=== PATIENT | female | born 1995 | race African-American/Black ===

== ENCOUNTER 2019-08-22 05:18 | Emergency (ER) | payer MEDICAID, SELFPAY ==
--- NOTE | ~2019-08-22 | XR_ITS ---
EXAMINATION: XR foot LT 2V DATE: 08/22/2019 05:52 INDICATION: Left foot pain. TECHNIQUE: 2 views of left foot were obtained. COMPARISON: None. FINDINGS: Bone alignment is normal. No acute fracture. There is mild osteoarthritis of talonavicular joint. IMPRESSION: 1. No acute fracture. Reviewed, dictated and finalized at location A. IMPRESSION: 1. No acute fracture.
[2019-08-22 05:20] VITALS: BP 147/108; PULSE 92; RESP 18; TEMP 36.5; O2SAT 100
[2019-08-22] MEDS: ACETAMINOPHEN 500 MG TABLET 1000 MG PO (05:44)
--- NOTE | 2019-08-22 05:44 | ED.LOWEXIN ---
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 Started yesterday without known injury, and hurts on the instep. Now she says she can barely bear weight. Even though she thinks she might be , she took ibuprofen for the pain, but it did not help. She has never had pain like this before. She had a baby in March, and her period is late from her last one in June. She has an appointment with the [facility] next week. Related Data Home Medications Medication Instructions Recorded Confirmed PNV cmb#95-ferrous fumarate-FA 1 tablet PO DAILY 04/18/19 04/18/19 [] Allergies Allergy/AdvReac Type Severity Reaction Status Date / Time Sulfa (Sulfonamide Allergy Mild Swelling Verified 08/22/19 05:19 Antibiotics) of Lip/Tongue/Throat Review of Systems Review of Systems: Narrative: CONSTITUTIONAL: Denies fever, chills, or sweats. EYES: Denies visual changes, redness, or discharge. ENT: Denies rhinorrhea, congestion, sore throat, or otalgia. CARDIOVASCULAR: Denies chest pain, palpitations, or edema. RESPIRATORY: Denies cough or dyspnea. GASTROINTESTINAL: Denies abdominal pain, nausea, vomiting, or diarrhea. GENITOURINARY: Denies dysuria or hematuria. SKIN: Denies rash or itching. MUSCULOSKELETAL: Denies back pain, or myalgia. NEUROLOGIC: Denies headache, numbness, or weakness. PSYCHIATRIC: Denies anxiety or depression. [facility] Past Medical History Medical History (Updated 08/22/19 @ 05:49 by Mirta Castelan MD) No pertinent past medical history Normal Surgical History Surgical History No pertinent past surgical history Family History Family History (Updated 04/18/19 @ 12:33 by Isabella Bob RN) Other Unknown family medical history Social History Social History (Updated 08/22/19 @ 05:47 by Mirta Castelan MD) Smoking status: Never smoker Alcohol intake: never Substance use: never Gender identity (if verbalized by the patient): Female Spiritual care concerns: No Exam Narrative: Exam Narrative: GENERAL: Well-appearing, well-nourished, and in no acute distress. HEAD: Normocephalic, atraumatic. EYES: PERRLA and EOMI. ENT: Nares clear, no rhinorrhea or epistaxis. Mucous membranes moist. NECK: Supple. CHEST: Clear to auscultation. No respiratory distress. HEART: Regular rate and rhythm. No murmur heard. Normal peripheral pulses. ABDOMEN: Soft, nontender, nondistended, normal active bowel sounds. EXTREMITIES: Left foot has swelling and tenderness medially. No redness. SKIN: Warm, dry, no rash. NEURO: No focal deficits. Alert and oriented x3. PSYCH: Normal mood and affect. Course Reevaluation(s) Reevaluation #1: Went in to tell the patient that no fracture showed up on her x-ray. The injury is either a stress fracture which does not show up until healing shows, or sprain. She can have a postop shoe for comfort. I reminded her to take only Tylenol for pain since she might be . Date: 08/22/19 Time: 06:09 Vital Signs Vital signs: Vital Signs Temperature 97.7 F 08/22/19 05:20 Pulse Rate 92 08/22/19 05:20 Respiratory Rate 18 08/22/19 05:20 Blood Pressure 147/108 H 08/22/19 05:20 Pulse Oximetry 100 08/22/19 05:20 Temperature 97.7 F 08/22/19 05:20 Pulse Rate 92 08/22/19 05:20 Respiratory Rate 18 08/22/19 05:20 Blood Pressure 147/108 H 08/22/19 05:20 Pulse Oximetry 100 08/22/19 05:20 MDM - Extremity Injury (Lower) Medical Records Attestation: I reviewed the patient's medical records. Imaging Data Attestation: I personally reviewed and interpreted this imaging study as follows: My impression: STS Discharge Plan Discharge Clinical Impression: Acute foot pain Qualifiers:
== END 2019-08-22 06:18 | disposition home or self-care (01) ==
PROVIDERS: Emergency Provider Emergency Medicine; PCP Family Medicine
DX: M79.672 Pain in left foot (principal)
CPT/HCPCS: 73620; 99283; A9270

== ENCOUNTER 2020-03-11 14:50 | Outpatient (CLI) | payer OTHER, SELFPAY ==
[2020-03-11 15:10] VITALS: BP 133/76; PULSE 99
[2020-03-11 15:43] VITALS: BP 128/78; PULSE 90
[2020-03-11 15:54] LABS: Basophils Percent Auto 0.1 % (0.2-1.2); Eosinophils Percent Auto 0.4 % (0-4.4); Hematocrit 30.2 % (37.0-47.0); Hemoglobin 9.5 g/dL (12.0-15.0); Immature Granulocyte Absolute 0.03 K/mm3 (0.00-0.031); Immature Granulocyte Percent A 0.4 % (0-0.5); Lymphocytes Absolute Auto 2.22 K/mm3 (0.9-3.2); Lymphocytes Percent Auto 26.8 % (18.3-44.2); Mean Corpuscular HGB Conc 31.5 g/dl (32-36); Mean Corpuscular Hemoglobin 25.8 pg (26-34); Mean Corpuscular Volume 82.1 fl (80-100); Mean Platelet Volume 11.1 fl (7.4-10.4); Monocytes Absolute Auto 0.4 K/mm3 (0.1-0.6); Monocytes Percent Auto 4.5 % (2.6-8.5); Neutrophils Absolute Auto 5.6 K/mm3 (1.3-6.7); Neutrophils Percent Auto 67.8 % (45.5-73.1); Platelet Count Result 217 k/mm3 (150-375); Red Blood Count 3.68 M/mm3 (4.2-5.4); Red Cell Distribution Width 14.1 % (11.5-14.5); White Blood Count 8.3 K/mm3 (4.5-10.0)
[2020-03-11 16:07] LABS: Alanine Aminotransferase 12 U/L (4-35); Albumin Level 3.4 g/dL (3.5-5.1); Alkaline Phosphatase 107 U/L (38-126); Anion Gap 4 mmol/L (8-16); Aspartate Amino Transferase 18 U/L (14-36); Bilirubin,Total 0.3 mg/dL (0.2-1.3); Blood Urea Nitrogen 6 mg/dL (7-17); Calcium 8.6 mg/dL (8.4-10.2); Carbon Dioxide 25 mmol/L (22-30); Chloride 106 mmol/L (98-107); Estimated Glomerular Filt Rate > 60; Glucose 95 mg/dL (65-105); Potassium 3.9 mmol/L (3.4-5.0); Sodium 135 mmol/L (137-145)
[2020-03-11 17:28] VITALS: TEMP 36.5
--- NOTE | 2020-03-12 07:49 | PM.OBTRLD ---
OB - Triage/Final Diagnosis Visit Information Date of evaluation: 03/11/20 Reason for evaluation: other (gest htn) Evaluation Laboratory results: Laboratory Tests 03/11/20 03/11/20 15:48 15:48 WBC 8.3 RBC 3.68 L Hgb 9.5 L Hct 30.2 L MCV 82.1 MCH 25.8 L MCHC 31.5 L RDW 14.1 Plt Count 217 MPV 11.1 H Immature Gran % (Auto) 0.4 Neut % (Auto) 67.8 Lymph % (Auto) 26.8 [place] % (Auto) 4.5 Eos % (Auto) 0.4 Baso % (Auto) 0.1 L Lymph # (Auto) 2.22 [place] # (Auto) 0.4 Eos # (Auto) 0.0 Baso # (Auto) 0.0 Abs Immat Gran (auto) 0.03 Absolute Neuts (auto) 5.6 Absolute Nucleated RBC 0.0 Nucleated RBC % 0.0 Sodium 135 L Potassium 3.9 Chloride 106 Carbon Dioxide 25 Anion Gap 4 L BUN 6 L Creatinine 0.60 L Estim Creat Clear Calc Not Reportable Estimated GFR > 60 Glucose 95 Uric Acid 4.0 Calcium 8.6 Total Bilirubin 0.3 AST 18 ALT 12 Alkaline Phosphatase 107 Total Protein 7.0 Albumin 3.4 L Vital signs: Vital Signs - 24 hr 03/11/20 15:10 03/11/20 15:43 03/11/20 17:28 Temperature 97.7 F Pulse Rate 99 90 Blood Pressure 133/76 128/78
== END 2020-03-11 17:27 | disposition home or self-care (01) ==
LOC: ANHOBOP 14:55 → ANHOBPP 14:58
PROVIDERS: PCP Family Medicine; Visit Provider Student in an Organized Health Care Education/Training Program
DX: O13.9 Gestational [pregnancy-induced] hypertension without significant proteinuria, unspecified trimester (principal); Z3A.00 Weeks of gestation of pregnancy not specified
CPT/HCPCS: 36415; 59025; 80053; 84550; 85025; 99199

== ENCOUNTER 2020-03-31 06:18 | Inpatient (IN) | payer OTHER, SELFPAY ==
[2020-03-31] VITALS (41 sets, daily range): BP systolic 100–149; BP diastolic 61–125; PULSE 74–111; RESP 16–18; TEMP 36.4–36.9; BMI 45.1
--- NOTE | 2020-03-31 06:48 | LDADM ---
This patient, Bri Brooks, was admitted to Labor/Delivery/Recovery 103 on 03/31/20 at 06:18. Plans for labor, pain management and were discussed with patient. Patient/family oriented to hospital policies and general routines including ID bracelet, bed and alarms, visiting hours, pain management, procedures, bathroom and other care routines, personal items, smoking policy, room service/diet and guest tray routines, infant security routines, and visiting hours. Patient/Family are encouraged to report perceived risks to care and to ask questions if they do not understand what they are told or what they should do. See OBIX for further documentation.
[2020-03-31] MEDS: OXYTOCIN 30 UNITS/NS 500 ML 30 UNITS/500 ML BAG 125 UNITS IV CONT ×2 (07:01→14:53)
[2020-03-31] MEDS: LACTATED RINGERS 1,000 ML 125 ML IV CONT (07:01)
[2020-03-31 07:06] LABS: Basophils Percent Auto 0.3 % (0.2-1.2); Eosinophils Absolute Auto 0.1 K/mm3 (0-0.3); Eosinophils Percent Auto 0.7 % (0-4.4); Hematocrit 30.3 % (37.0-47.0); Hemoglobin 9.6 g/dL (12.0-15.0); Immature Granulocyte Absolute 0.02 K/mm3 (0.00-0.031); Immature Granulocyte Percent A 0.3 % (0-0.5); Lymphocytes Absolute Auto 2.13 K/mm3 (0.9-3.2); Lymphocytes Percent Auto 29.9 % (18.3-44.2); Mean Corpuscular HGB Conc 31.7 g/dl (32-36); Mean Corpuscular Hemoglobin 24.6 pg (26-34); Mean Corpuscular Volume 77.7 fl (80-100); Mean Platelet Volume 11.1 fl (7.4-10.4); Monocytes Absolute Auto 0.5 K/mm3 (0.1-0.6); Monocytes Percent Auto 6.3 % (2.6-8.5); Neutrophils Absolute Auto 4.5 K/mm3 (1.3-6.7); Neutrophils Percent Auto 62.5 % (45.5-73.1); Platelet Count Result 235 k/mm3 (150-375); Red Cell Distribution Width 13.8 % (11.5-14.5); White Blood Count 7.1 K/mm3 (4.5-10.0)
--- NOTE | 2020-03-31 07:50 | PM.IMHP ---
H&P: HPI History of Present Illness Date/Time: 03/31/20 07:50 Chief Complaint: iol Narrative: Bri Brooks is a 24 year old female whose last menstrual period was 07/06/2019, EDC is 04/07/2020, presents at 39 weeks gestation for induction of labor. Negative for group B strep. Her cervix is favorable. Review of Systems Review of Systems: All systems reviewed & are unremarkable except as noted in HPI and below PMFSH Past Medical History Medical History No pertinent past medical history Normal Surgical History Surgical History No pertinent past surgical history Family History Family History Other Unknown family medical history Social History Social History Smoking status: Never smoker Second hand tobacco smoke exposure: No Alcohol intake: never Substance use: never Gender identity (if verbalized by the patient): Female Spiritual care concerns: No Meds Home Medications and Allergies Home Medications Medication Instructions Recorded Confirmed Type PNV cmb#95-ferrous fumarate-FA 1 tablet PO DAILY 04/18/19 03/11/20 History [] ferrous sulfate [Iron (ferrous 325 mg PO DAILY 03/11/20 03/11/20 History sulfate)] Allergies Allergy/AdvReac Type Severity Reaction Status Date / Time Sulfa (Sulfonamide Allergy Mild Swelling Verified 08/22/19 05:19 Antibiotics) of Lip/Tongue/Throat Vital Signs Vital Signs - 24 hr 03/31/20 06:54 03/31/20 07:01 03/31/20 07:06 Temperature 97.7 F Pulse Rate 97 98 Blood Pressure 149/66 H 133/64 03/31/20 07:16 03/31/20 07:31 03/31/20 07:46 Temperature Pulse Rate 97 85 102 H Blood Pressure 128/68 126/61 134/69 Exam Const: General: no acute distress Eyes: General: appearance normal, both eyes and all related structures Neck: Neck: supple and no JVD Thyroid: thyroid normal Resp: Effort & Inspection: normal respiratory effort Auscultation: clear to auscultation bilaterally Cardio: Rate: regular rate Rhythm: regular rhythm GI: Inspection: non-distended GI Palp: Yes Soft to palpation, No Tenderness to palpation present (GI) and No Guarding due to palpation present (GI) Auscultation: normal bowel sounds : General: Yes other (Cervix 3/50/2. AROM clear. FHTs reassuring) Skin: General skin exam: no rashes or lesions noted Extrem: General: normal to inspection and no edema Psych: Mental Status: mental status grossly normal Affect: normal affect H&P: Results Labs Labs: Short CBC 03/31/20 Range/Units 06:49 WBC 7.1 (4.5-10.0) K/mm3 Hgb 9.6 L (12.0-15.0) g/dL Hct 30.3 L (37.0-47.0) % Plt Count 235 (150-375) k/mm3 Assessment and Plan Additional Plan Impression: Term with favorable cervix Plan: Medical induction of labor. Spontaneous vaginal delivery expected. She is contemplating epidural
--- NOTE | 2020-03-31 12:27 | PM.OBPNVD ---
OB - PN: Subj Subjective Date/time seen: 03/31/20 12:27 Interval history: cx 4.5 by rn exam fhts ok OB - PN: Obj Data Labs CBC & Chem 7: 03/31/20 06:49 Labs: Laboratory Results - last 24 hr 03/31/20 03/31/20 06:49 06:49 WBC 7.1 RBC 3.90 L Hgb 9.6 L Hct 30.3 L MCV 77.7 L MCH 24.6 L MCHC 31.7 L RDW 13.8 Plt Count 235 MPV 11.1 H Immature Gran % (Auto) 0.3 Neut % (Auto) 62.5 Lymph % (Auto) 29.9 [place] % (Auto) 6.3 Eos % (Auto) 0.7 Baso % (Auto) 0.3 Lymph # (Auto) 2.13 [place] # (Auto) 0.5 Eos # (Auto) 0.1 Baso # (Auto) 0.0 Abs Immat Gran (auto) 0.02 Absolute Neuts (auto) 4.5 Absolute Nucleated RBC 0.0 Nucleated RBC % 0.0 Blood Type B Positive Antibody Screen Negative OB - PN A/P Time Spent With Patient Time: Total time spent is greater than 50% in coordination of care (as documented) at patient's floor/unit and/or counseling patient:
--- NOTE | 2020-03-31 14:17 | WPDANESEPP ---
Anes - Eval Pre Procedure Procedure: labor epidural Date/Time: 03/31/20 14:17 Surgeon: olya Preop Diagnosis: pain during labor Pre Op Diagnosis: Induction of Labor Patient Data Age: 24 Gender: F Height: 5 ft 5 in Weight: 123 kg Last Vital Signs Temp 36.6 C 03/31/20 13:00 Pulse 83 03/31/20 13:16 BP 125/106 H 03/31/20 13:16 Allergies Allergy/AdvReac Type Severity Reaction Status Date / Time Sulfa (Sulfonamide Allergy Mild Swelling Verified 08/22/19 05:19 Antibiotics) of Lip/Tongue/Throat Home Medications Medication Instructions Recorded Confirmed Type PNV cmb#95-ferrous fumarate-FA 1 tablet PO DAILY 04/18/19 03/11/20 History [] ferrous sulfate [Iron (ferrous 325 mg PO DAILY 03/11/20 03/11/20 History sulfate)] Laboratory Tests 03/31/20 03/31/20 03/31/20 06:49 06:49 06:49 WBC 7.1 K/mm3 K/mm3 (4.5-10.0) RBC 3.90 M/mm3 L M/mm3 (4.2-5.4) Hgb 9.6 g/dL L g/dL (12.0-15.0) Hct 30.3 % L % (37.0-47.0) MCV 77.7 fl L fl (80-100) MCH 24.6 pg L pg (26-34) MCHC 31.7 g/dl L g/dl (32-36) RDW 13.8 % % (11.5-14.5) Plt Count 235 k/mm3 k/mm3 (150-375) MPV 11.1 fl H fl (7.4-10.4) Immature Gran % (Auto) 0.3 % % (0-0.5) Neut % (Auto) 62.5 % % (45.5-73.1) Lymph % (Auto) 29.9 % % (18.3-44.2) [place] % (Auto) 6.3 % % (2.6-8.5) Eos % (Auto) 0.7 % % (0-4.4) Baso % (Auto) 0.3 % % (0.2-1.2) Lymph # (Auto) 2.13 K/mm3 K/mm3 (0.9-3.2) [place] # (Auto) 0.5 K/mm3 K/mm3 (0.1-0.6) Eos # (Auto) 0.1 K/mm3 K/mm3 (0-0.3) Baso # (Auto) 0.0 K/mm3 K/mm3 (0.0-0.1) Abs Immat Gran (auto) 0.02 K/mm3 K/mm3 (0.00-0.031) Absolute Neuts (auto) 4.5 K/mm3 K/mm3 (1.3-6.7) Absolute Nucleated RBC 0.0 K/mm3 K/mm3 (0.0-0.012) Nucleated RBC % 0.0 % % (0.0-0.2) RPR Pending Blood Type B Positive Antibody Screen Negative Patient hx anesthesia problems: none Family hx anesthesia problems: none PMFSH Past Medical History Medical History (Updated 03/31/20 @ 14:18 by Arnaldo Espinoza CRNA) No pertinent past medical history Normal Surgical History Surgical History No pertinent past surgical history Family History Family History Other Unknown family medical history Social History Social History Smoking status: Never smoker Second hand tobacco smoke exposure: No Alcohol intake: never Substance use: never Gender identity (if verbalized by the patient): Female Spiritual care concerns: No Exam Day of Procedure 03/31/20 14:17 Patient weight: morbidly obese Heart: regular rate and rhythm Lungs: clear to auscultation and normal air movement Neurological: alert and oriented
--- NOTE | 2020-03-31 14:27 | PM.OBPRVD ---
OB - Delivery Note Procedure Delivery date: 03/31/20 Intrapartal events: None Induction method: AROM Delivery augmentation: pitocin Delivery monitor: external FHT Route of delivery: Episiotomy description: None Laceration Description: None Specimen: No Quantitative Blood Loss (ml): 58 Disposition: floor [place] Baby Date of : 03/31/20 Time of : 14:19 Weeks of gestation at delivery: 39 gender: Male presentation: vertex position: Right Occiput Anterior Placenta delivery description: Spontaneous cord vessel description: 3 Vessels and Clamped/Cut score one minute: 9 score five minutes: 9
[2020-03-31] MEDS: IBUPROFEN 600 MG TABLET PO (16:29)
--- NOTE | 2020-03-31 17:33 | OBPPTRN ---
Patient transferred to post room # 287 via wheelchair. Support person present. Oriented to unit, room, information board, rooming in, admission packet and security measures. Patient verbalizes understanding.
[2020-04-01] MEDS: IBUPROFEN 600 MG TABLET PO (04:15)
[2020-04-01 05:53] LABS: Hematocrit 27.6 % (37.0-47.0); Hemoglobin 8.7 g/dL (12.0-15.0)
--- NOTE | 2020-04-01 06:33 | PM.OBPNVD ---
OB - PN: Subj Subjective Date/time seen: 04/01/20 06:33 Interval history: cx 4.5 by rn exam fhts ok Patient comments: no complaints and pain well controlled [place] baby status: doing well and nursing well OB - PN: Obj Data Labs CBC & Chem 7: 04/01/20 04:17 Labs: Laboratory Results - last 24 hr 03/31/20 03/31/20 04/01/20 06:49 06:49 04:17 WBC 7.1 RBC 3.90 L Hgb 9.6 L 8.7 L Hct 30.3 L 27.6 L MCV 77.7 L MCH 24.6 L MCHC 31.7 L RDW 13.8 Plt Count 235 MPV 11.1 H Immature Gran % (Auto) 0.3 Neut % (Auto) 62.5 Lymph % (Auto) 29.9 [place] % (Auto) 6.3 Eos % (Auto) 0.7 Baso % (Auto) 0.3 Lymph # (Auto) 2.13 [place] # (Auto) 0.5 Eos # (Auto) 0.1 Baso # (Auto) 0.0 Abs Immat Gran (auto) 0.02 Absolute Neuts (auto) 4.5 Absolute Nucleated RBC 0.0 Nucleated RBC % 0.0 Blood Type B Positive Antibody Screen Negative OB - PN A/P Plan day: 1 Plan: routine care, discharge home and follow up 6 weeks Time Spent With Patient Time: Total time spent is greater than 50% in coordination of care (as documented) at patient's floor/unit and/or counseling patient: Time with patient: less than 15 minutes Review of Systems Review of Systems: All systems reviewed & are unremarkable except as noted in HPI and below Exam Const: General: no acute distress Eyes: General: appearance normal, both eyes and all related structures Neck: Neck: supple and no JVD Thyroid: thyroid normal Resp: Effort & Inspection: normal respiratory effort Auscultation: clear to auscultation bilaterally Cardio: Rate: regular rate Rhythm: regular rhythm GI: Inspection: non-distended GI Palp: Yes Soft to palpation, No Tenderness to palpation present (GI) and No Guarding due to palpation present (GI) Auscultation: normal bowel sounds : General: Yes bladder normal to palpation External Female Exam: normal external appearance Speculum Exam - Vagina: normal vaginal discharge and No vaginal bleeding Speculum Exam - Cervix: nontender Bimanual exam- vagina & uterus: bladder normal to palpation and No Cervical tenderness present OB/external & speculum: No vaginal bleeding Skin: General skin exam: no rashes or lesions noted Extrem: General: normal to inspection and no edema Psych: Mental Status: mental status grossly normal Affect: normal affect
--- NOTE | 2020-04-01 06:33 | PM.DS ---
DS: Admitting Diagnosis Admitting Diagnosis Admitting Diagnosis: term iup DS: Summary Hospital Course Hospital Course: Patient was admitted at term for induction of labor. She underwent unremarkable spontaneous vaginal delivery. Hospital course was unremarkable was discharged in stable condition Time Spent with Patient Time attestation: Total time spent providing and/or coordinating discharge services: Exam Const: General: no acute distress Eyes: General: appearance normal, both eyes and all related structures Neck: Neck: supple and no JVD Thyroid: thyroid normal Resp: Effort & Inspection: normal respiratory effort Auscultation: clear to auscultation bilaterally Cardio: Rate: regular rate Rhythm: regular rhythm GI: Inspection: non-distended GI Palp: Yes Soft to palpation, No Tenderness to palpation present (GI) and No Guarding due to palpation present (GI) Auscultation: normal bowel sounds : General: Yes bladder normal to palpation External Female Exam: normal external appearance Speculum Exam - Vagina: normal vaginal discharge and No vaginal bleeding Speculum Exam - Cervix: nontender Bimanual exam- vagina & uterus: bladder normal to palpation and No Cervical tenderness present OB/external & speculum: No vaginal bleeding Skin: General skin exam: no rashes or lesions noted Extrem: General: normal to inspection and no edema Psych: Mental Status: mental status grossly normal Affect: normal affect DS: Data Data Completed and Pending Labs on day of discharge: Labs from last 24 hours 04/01/20 03/31/20 03/31/20 04:17 06:49 06:49 WBC RBC Hgb 8.7 L Hct 27.6 L MCV MCH MCHC RDW Plt Count MPV Immature Gran % (Auto) Neut % (Auto) Lymph % (Auto) [place] % (Auto) Eos % (Auto) Baso % (Auto) Lymph # (Auto) [place] # (Auto) Eos # (Auto) Baso # (Auto) Abs Immat Gran (auto) Absolute Neuts (auto) Absolute Nucleated RBC Nucleated RBC % RPR Pending Blood Type B Positive Antibody Screen Negative 03/31/20 06:49 WBC 7.1 RBC 3.90 L Hgb 9.6 L Hct 30.3 L MCV 77.7 L MCH 24.6 L MCHC 31.7 L RDW 13.8 Plt Count 235 MPV 11.1 H Immature Gran % (Auto) 0.3 Neut % (Auto) 62.5 Lymph % (Auto) 29.9 [place] % (Auto) 6.3 Eos % (Auto) 0.7 Baso % (Auto) 0.3 Lymph # (Auto) 2.13 [place] # (Auto) 0.5 Eos # (Auto) 0.1 Baso # (Auto) 0.0 Abs Immat Gran (auto) 0.02 Absolute Neuts (auto) 4.5 Absolute Nucleated RBC 0.0 Nucleated RBC % 0.0 RPR Blood Type Antibody Screen Discharge Plan Discharge Attending physician on discharge: Jose Arroyo Discharging Clinician: Jose Arroyo Patient Disposition: Home, Self-Care Activity: may shower, no straining and pelvic rest Diet: heart healthy Patient Instructions: Antibiotic Form Stand Alone Forms: General Discharge Information Follow-up/Referrals: Jose Arroyo MD [Physician] - Discharge Medications: Continued ferrous sulfate [Iron (ferrous sulfate)] 325 mg (65 mg iron) Tablet 325 mg PO DAILY RF: 0 PNV cmb#95-ferrous fumarate-FA [] 28 mg iron- 800 mcg Tablet 1 tablet PO DAILY RF: 0 Date of admission: 03/31/20 06:18 Primary Care Provider: Amna,Manoj Apodaca Admitting Provider: Jose Arroyo Attending physician on admission: Jose Arroyo Condition: Stable
[2020-04-01 07:04] LABS: Rapid Plasma Reagin Non-Reactive (NonReactive)
[2020-04-01 07:55] VITALS: BP 120/64; PULSE 87; RESP 16; TEMP 36.6; O2SAT 100
[2020-04-01] MEDS: POLYSACCHARIDE IRON COMPLEX 150 MG CAPSULE PO ×2 (09:18→16:22)
[2020-04-01] MEDS: DOCUSATE SODIUM 100 MG CAPSULE PO ×2 (09:18→16:22)
== END 2020-04-01 17:26 | disposition home or self-care (01) | DRG 560 ==
LOC: ANHLDR 06:23 → ANHOB2 17:09
PROVIDERS: Admitting Provider Obstetrics & Gynecology; PCP Family Medicine; Visit Provider Obstetrics & Gynecology
DX: O99.214 Obesity complicating childbirth (principal); Z37.0 Single live birth; Z3A.39 39 weeks gestation of pregnancy; E66.01 Morbid (severe) obesity due to excess calories; Z23 Encounter for immunization
CPT/HCPCS: 36415; 85014; 85018; 85025; 86592; 86850; 86900; 86901; 90471; 90653; A9270; G0008; J2590; J7120

== ENCOUNTER 2021-06-30 16:33 | Emergency (ER) | payer OTHER, SELFPAY ==
--- NOTE | 2021-06-30 16:36 | ED.URI ---
HPI - URI/Sore Throat General Chief Complaint: Upper Respiratory Infection Stated Complaint: SORE THROAT/SWOLLEN TONSILS Time Seen by Provider: 06/30/21 16:36 Source: patient and RN notes reviewed History of Present Illness HPI Narrative: Patient is a 26-year-old female who presents the urgent care with complaints of sore throat, swollen glands and night sweats. Patient states that it started on Monday and she has been using TheraFlu, Chloraseptic spray and pain medication. Patient denies of any fever, chills, nausea or vomiting. Denies of cough. Denies any ill contacts. No other acute complaints. No acute distress noted. Patient aware of the plan of care. Some parts of this dictation were generated by voice recognition software and may contain typographical and/or grammatical inaccuracies. Related Data Home Medications Medication Instructions Recorded Confirmed valacyclovir 06/30/21 Allergies Allergy/AdvReac Type Severity Reaction Status Date / Time Sulfa (Sulfonamide Allergy Mild Swelling Verified 08/22/19 05:19 Antibiotics) of Lip/Tongue/Throat Review of Systems Review of Systems: CONSTITUTIONAL: Reports of chills and sweats EYES: Denies visual changes, redness, or discharge. ENT: Denies rhinorrhea, congestion, or otalgia. Reports of sore throat CARDIOVASCULAR: Denies chest pain, palpitations, or edema. RESPIRATORY: Denies cough or dyspnea. GASTROINTESTINAL: Denies abdominal pain, nausea, vomiting, or diarrhea. GENITOURINARY: Denies dysuria or hematuria. SKIN: Denies rash or itching. MUSCULOSKELETAL: Denies back pain, joint pain, or myalgia. NEUROLOGIC: Denies headache, numbness, or weakness. All other systems reviewed are negative, except as documented in HPI. ON LICENSE OF [facility] Past Medical History Medical History No pertinent past medical history Normal Surgical History Surgical History No pertinent past surgical history Family History Family History Other Unknown family medical history Social History Social History Smoking status: Never smoker Second hand tobacco smoke exposure: No Alcohol intake: never Substance use: never Gender identity (if verbalized by the patient): Female Spiritual care concerns: No Comments At the time of my signature, I reviewed and agree with the nursing past medical, surgical, social, and family history. There is no relevant family history pertinent to the patient complaint. Exam Narrative: GENERAL: This is a well-nourished, well-developed patient, in no apparent distress. HEAD: normocephalic, atraumatic. EYES: PERRL. Sclera clear/white. Vision is grossly intact. EARS: External ears normal, auditory canals clear and without drainage, TMs normal without perforation. Hearing grossly intact. NOSE: External nose normal with no obvious nasal discharge, nares without redness, no rhinorrhea. THROAT: Mucous membranes moist. Moderate erythema to posterior pharynx with mild to moderate bilateral tonsillar edema with bilateral exudate. Moderate postnasal drainage NECK: Neck supple, mild tenderness to moderate submandibular lymphadenopathy, without masses or thyromegaly. CARDIOVASCULAR: Regular rate and rhythm without murmurs, gallops, or rubs. RESPIRATORY: Clear to auscultation. Breath sounds equal bilaterally. No wheezes, rales, or rhonchi. SKIN: warm, intact with no suspicious lesions or rash, good texture and turgor. NEURO: awake, alert, and oriented to person, place and time. There were no obvious focal neurologic abnormalities. EXTREMITIES: No clubbing, cyanosis, or edema. Course Course Level of Care: Express Care Visit Vital Signs Vital signs: Vital Signs Temperature 98.6 F 06/30/21 16:40 Pulse Rate 114 H 06/30/21 16:40
[2021-06-30 16:40] VITALS: BP 146/112; PULSE 114; RESP 16; TEMP 37; O2SAT 98
== END 2021-06-30 17:07 | disposition home or self-care (01) ==
PROVIDERS: Emergency Provider Nurse Practitioner Family; PCP Family Medicine
DX: J01.90 Acute sinusitis, unspecified (principal)
CPT/HCPCS: 87081; 87880; 99213; G0463

== ENCOUNTER 2021-08-21 13:05 | Emergency (ER) | payer OTHER, SELFPAY ==
[2021-08-21 13:16] VITALS: BP 148/104; PULSE 94; RESP 18; TEMP 36.4; O2SAT 100
--- NOTE | 2021-08-21 14:31 | ED.WOUNDLAC ---
HPI - Wound/Laceration General Chief Complaint: Wound/Laceration Stated Complaint: laceration to index on left hand Time Seen by Provider: 08/21/21 13:16 History of Present Illness HPI narrative: Patient was cutting up some [place] earlier today with new knives she received for Mother's Day when the knife slipped and cut her in her left index finger, she was able to wash and control the bleeding, and came here. She is endorsing some mild tingling to the finger tip, and pain with movement of the finger, but able to flex and extend the finger (though flexion at the DIP is more limited). Tdap UTD and she is right handed. Related Data Home Medications Medication Instructions Recorded Confirmed valacyclovir 500 mg tablet 06/30/21 Allergies Allergy/AdvReac Type Severity Reaction Status Date / Time Sulfa (Sulfonamide Allergy Mild Swelling Verified 08/22/19 05:19 Antibiotics) of Lip/Tongue/Throat Review of Systems Review of Systems: M/S: Left index finger pain SKIN: Cut to finger NEURO: Numbness to tip of finger PMFSH Past Medical History Medical History No pertinent past medical history Normal Surgical History Surgical History No pertinent past surgical history Family History Family History Other Unknown family medical history Social History Social History Smoking status: Never smoker Second hand tobacco smoke exposure: No Alcohol intake: never Substance use: never Gender identity (if verbalized by the patient): Female Spiritual care concerns: No Exam Narrative: EXAMINATION OF ORGAN SYSTEMS/BODY AREAS: Constitutional: Vital signs per nursing GENERAL:[No acute distress, non-toxic appearing.] HEAD: Normal with no signs of head trauma. EYES: EOMI, conjunctiva normal ENT: Hearing grossly intact LUNGS: Nonlabored breathing. HEART: [Regular rate and rhythm] EXT: Able to fully extend left index finger but some difficulty with flexion at DIP, linear laceration/partial 3cm amputation across ulnar aspect of finger. Good cap refill, some subjective dimished sensation but cold/pain intact SKIN: lac as above NEURO: [Alert and oriented x 3.] PSYCH: Normal affect Course Course Emergency Course: 26-year-old female presenting with finger laceration, exam does show deep laceration to index finger ulnar side, wound explored does not appear to involve tendon, though I suspect possible nerve involvement of the distal fingertip, wound is irrigated extensively, well approximated, she is started on a course of antibiotics prophylactically, which will be given follow-up to hand surgery in 2-3 days. Return precautions provided, stable for discharge home Vital Signs Vital signs: Vital Signs Temperature 97.5 F L 08/21/21 13:16 Pulse Rate 94 08/21/21 13:16 Respiratory Rate 18 08/21/21 13:16 Blood Pressure 148/104 H 08/21/21 13:16 Pulse Oximetry 100 08/21/21 13:16 Temperature 97.5 F L 08/21/21 13:16 Pulse Rate 94 08/21/21 13:16 Respiratory Rate 18 08/21/21 13:16 Blood Pressure 148/104 H 08/21/21 13:16 Pulse Oximetry 100 08/21/21 13:16 Procedures Laceration Laceration 1: Site: hand (left index) Size (cm): 3 Description: linear, flap and clean Depth: involves muscle layer Amount of anesthesia used (mL): 3 Pre-repair: wound explored, irrigated, irrigated extensively, minor debridement, deep structures intact and wound margins revised ====== Skin Level ====== Skin layer closed with: nylon Size (cm): 4-0 Number of sutures: 11 Technique: simple, interrupted ====== Subcutaneous Layer ====== ====== Muscle Layer ====== ====== Tendon Layer ====== Nerve Block Nerve Block 1:
--- NOTE | 2021-08-21 15:26 | PC.NURSE ---
Telfa applied and tube gauze.
== END 2021-08-21 15:27 | disposition home or self-care (01) ==
PROVIDERS: Emergency Provider Emergency Medicine; PCP Family Medicine
DX: S61.211A Laceration without foreign body of left index finger without damage to nail, initial encounter (principal); W26.0XXA Contact with knife, initial encounter
CPT/HCPCS: 12032; 99283

== ENCOUNTER 2022-05-25 18:31 | Emergency (ER) | payer OTHER, SELFPAY ==
[2022-05-25 18:40] VITALS: BP 156/93; PULSE 80; RESP 16; TEMP 36.6; O2SAT 100
[2022-05-25 18:43] VITALS: BP 156/93; PULSE 80; RESP 16; TEMP 36.6; O2SAT 100
--- NOTE | 2022-05-25 18:52 | ED.EAR ---
HPI - Ear Problem General Chief complaint: Ear Stated complaint: EAR PRESSURE/CLOGGED Time Seen by Provider: 05/25/22 18:40 Source: patient Mode of arrival: ambulatory Limitations: no limitations History of Present Illness HPI Narrative: patient is a 36-year-old female that presents with right ear fullness since . Reports nasal congestion, cough, sore throat prior to start of ear fullness. denies any sick contacts. States she has used ear drops and hydrogen peroxide with no relief. MD Complaint: ear pain Related Data Allergies Allergy/AdvReac Type Severity Reaction Status Date / Time Sulfa (Sulfonamide Allergy Mild Swelling Verified 05/25/22 18:35 Antibiotics) of Lip/Tongue/Throat Review of Systems Review of Systems: CONSTITUTIONAL: Denies malaise, chills, sweats, or fever.? EYES: Denies visual changes, redness, or discharge.? ENT: denies rhinorrhea, congestion, sore throat reports otalgia.? CARDIOVASCULAR: Denies chest pain, palpitations, or edema.? RESPIRATORY: Denies dyspnea and cough? GASTROINTESTINAL: Denies abdominal pain, nausea, vomiting, diarrhea? SKIN: Denies rash or itching.? MUSCULOSKELETAL: Denies myalgia.? NEUROLOGIC: Denies headache All systems reviewed & are unremarkable except as noted in HPI and below PMFSH Past Medical History Medical History No pertinent past medical history Normal Surgical History Surgical History No pertinent past surgical history Family History Family History Other Unknown family medical history Social History Social History Smoking status: Never smoker Second hand tobacco smoke exposure: No Alcohol intake: never Substance use: never Gender identity (if verbalized by the patient): Female Spiritual care concerns: No Comments At time of signature, agree with nursing past medical, surgical, social and family history. There is no relevant family history pertinent to the presenting complaint? Exam Narrative: GENERAL: Well-appearing, well-nourished, and in no acute distress.? HEAD: Normocephalic, atraumatic.? EYES: PERRLA, conjunctivae clear, and EOMI. No nystagmus.? ENT: Nares clear, turbinates pink, no rhinorrhea or epistaxis. Mucous membranes moist. TM pearly johns with sharp light reflex left, dull light reflex right; no tragal tenderness. Oropharynx without erythema or lesions. Tonsils not enlarged and without exudate.? NECK: Supple. No lymphadenopathy. No jugular venous distension, thyromegaly, or carotid bruits. Carotids were easily palpable bilaterally.?? CHEST: No respiratory distress. Clear to auscultation.? No bony deformities, no asymmetry. Speaks in full sentences.? HEART: Regular rate and rhythm. SKIN: Warm, dry, no rash.? NEURO: Alert and oriented x3. No focal deficits. PSYCH: Normal mood and affect? Course Course Emergency Course: Patient is aware of diagnosis, understands and agrees to treatment plan.? Anticipatory guidance given.? Patient agrees to follow-up as directed and is aware of reasons to seek care at the emergency department.? Portions of this record may have been created with voice recognition software? Level of Care: Express Care Visit Vital Signs Vital signs: Vital Signs Temperature 36.6 C 05/25/22 18:40 Pulse Rate 80 05/25/22 18:40 Respiratory Rate 16 05/25/22 18:40 Blood Pressure 156/93 H 05/25/22 18:40 Pulse Oximetry 100 05/25/22 18:40 Temperature 36.6 C 05/25/22 18:43 Pulse Rate 80 05/25/22 18:43 Respiratory Rate 16 05/25/22 18:43 Blood Pressure 156/93 H 05/25/22 18:43 Pulse Oximetry 100 05/25/22 18:43 Reviewed Medical Decision Making MDM Narrative Medical decision making narrative: Differential diagnosis considered: Russell virus, strep pharyngitis, all
== END 2022-05-25 18:59 | disposition home or self-care (01) ==
PROVIDERS: Emergency Provider Nurse Practitioner Family; PCP Family Medicine
DX: H66.91 Otitis media, unspecified, right ear (principal)
CPT/HCPCS: 99213; G0463

== ENCOUNTER 2022-06-20 18:45 | Emergency (ER) | payer OTHER, SELFPAY ==
--- NOTE | ~2022-06-20 | XR_ITS ---
EXAMINATION: XR shoulder RT min 2V INDICATION: Right shoulder pain TECHNIQUE: Four views of the right shoulder are submitted. COMPARISON: None FINDINGS: Normal alignment. No fracture. Glenohumeral and acromioclavicular joint spaces are normal. Soft tissues are unremarkable. IMPRESSION: 1. No acute osseous abnormality. Reviewed, dictated and finalized at location F.
[2022-06-20 20:18] VITALS: BP 145/109; PULSE 88; RESP 16; TEMP 36.7; O2SAT 100
[2022-06-20 22:22] VITALS: BP 160/115; PULSE 74; RESP 14; TEMP 36.8; O2SAT 100
[2022-06-20 22:41] VITALS: BP 158/118; PULSE 83; RESP 20; TEMP 36.8; O2SAT 100
[2022-06-21 00:34] VITALS: BP 143/105; PULSE 78; RESP 18; O2SAT 100
--- NOTE | 2022-06-21 01:35 | ED.GENADULT ---
HPI - General Adult General Chief complaint: Extremity Injury, Upper Stated complaint: right shoulder pain Time Seen by Provider: 06/21/22 00:17 History of Present Illness HPI narrative: 26 y/o F reports for evaluation of R shoulder pain x1 day. Pt reports the pain is a constant dull to the top of her R shoulder worse with movement. States it started about 1-2 hours after working out. She reports she does not remember a specific injury occurring to her shoulder. Denies abdominal pain, n/v/d, fever, body aches, chills, CP, SOB, paresthesias, neck pain, Headache Related Data Allergies Allergy/AdvReac Type Severity Reaction Status Date / Time Sulfa (Sulfonamide Allergy Mild Swelling Verified 06/20/22 23:04 Antibiotics) of Lip/Tongue/Throat Review of Systems Review of Systems: CONSTITUTIONAL: Denies fever, chills EYES: Denies visual changes, redness, or discharge. ENT: Denies rhinorrhea, congestion, sore throat, or otalgia. CARDIOVASCULAR: Denies chest pain, palpitations, or edema. RESPIRATORY: Denies cough or dyspnea. GASTROINTESTINAL: Denies abdominal pain, nausea, vomiting, or diarrhea. GENITOURINARY: Denies dysuria or hematuria. SKIN: Denies rash or itching. MUSCULOSKELETAL: See HPI NEUROLOGIC: Denies headache, numbness, dizziness, or weakness. PSYCHIATRIC: Denies anxiety or depression. PMFSH Past Medical History Medical History No pertinent past medical history Normal Surgical History Surgical History No pertinent past surgical history Family History Family History Other Unknown family medical history Social History Social History Smoking status: Never smoker Second hand tobacco smoke exposure: No Alcohol intake: never Substance use: never Gender identity (if verbalized by the patient): Female Spiritual care concerns: No Exam Narrative: GENERAL: Well-appearing, well-nourished, and in no acute distress. Patient resting comfortably in the exam chair. She is pleasant and conversational. HEAD: Normocephalic, atraumatic. EYES: PERRLA and EOMI. NECK: Supple. No adenopathy or masses. No midline vertebral tenderness, step-offs or deformities. CHEST: Clear to auscultation. No respiratory distress. No wheezes rales or rhonchi HEART: Regular rate and rhythm. No murmur heard. Normal peripheral pulses. ABDOMEN: Soft, nontender, nondistended, normal active bowel sounds. EXTREMITIES: RUE: Tenderness over the right trapezius and right acromion. No tenderness to clavicle or glenohumeral joint or proximal humerus. Limited flexion and abduction secondary to pain. Full internal and external rotation of the shoulder. 4/5 strength with empty can. 5/5 strength with external rotation. Patient unable to put her shoulder behind her back for lift off test. Radial pulse 2+. Sensation intact in all dermatomes. SKIN: Warm, dry, no rash. NEURO: No focal deficits. Alert and oriented x3. PSYCH: Normal mood and affect. Course Vital Signs Vital signs: Vital Signs Temperature 98.1 F 06/20/22 20:18 Pulse Rate 88 06/20/22 20:18 Respiratory Rate 16 06/20/22 20:18 Blood Pressure 145/109 H 06/20/22 20:18 Pulse Oximetry 100 06/20/22 20:18 Oxygen Delivery Room Air 06/20/22 20:18 Temperature 98.3 F 06/20/22 22:41 Pulse Rate 78 06/21/22 00:34 Respiratory Rate 18 06/21/22 00:34 Blood Pressure 143/105 H 06/21/22 00:34 Pulse Oximetry 100 06/21/22 00:34 Oxygen Delivery Room Air 06/20/22 20:18 Medical Decision Making [facility] Narrative Medical decision making narrative: 26 y/o F reports for evaluation of R shoulder pain x1 day. Pt reports she worked out 2 hours prior to pain starting, however she does not recall injuring the shoulder. No radiculopathy, neck pain, CP, abdominal
[2022-06-21] MEDS: NAPROXEN 500 MG TABLET PO (01:46)
== END 2022-06-21 03:28 | disposition home or self-care (01) ==
PROVIDERS: Emergency Provider Physician Assistant; PCP Family Medicine
DX: M25.511 Pain in right shoulder (principal)
CPT/HCPCS: 73030; 99213; 99283; A4565; A9270; G0463

== ENCOUNTER 2024-02-06 12:40 | Emergency (ER) | payer OTHER, SELFPAY ==
[2024-02-06 12:51] VITALS: BP 163/112; PULSE 86; RESP 16; TEMP 36.6; O2SAT 100
--- NOTE | 2024-02-06 13:00 | ED.GENADULT ---
HPI - General Adult General Chief complaint: Ear Stated complaint: facial swelling Time Seen by Provider: 02/06/24 12:59 Source: patient and RN notes reviewed Mode of arrival: ambulatory Limitations: no limitations History of Present Illness HPI narrative: 28-year-old female presents concern for right-sided cheek, ear, neck swelling. Reports she was seen in the emergency room yesterday and diagnosed with otitis externa I was given ear drops which she was using as prescribed. Reports she had trouble sleeping last night because of pain, she woke up today and her ear and the area surrounding her ear is swollen and very painful. complaint: Ear swelling Related Data Allergies Allergy/AdvReac Type Severity Reaction Status Date / Time Sulfa (Sulfonamide Allergy Mild Swelling Verified 06/20/22 23:04 Antibiotics) of Lip/Tongue/Throat Review of Systems Review of Systems: CONSTITUTIONAL: Denies malaise, chills, sweats, or fever. EYES: Denies visual changes, redness, or discharge. ENT: Denies rhinorrhea, congestion, sinus pain, and sore throat. Reports right ear pain, drainage, pain surrounding the ear, swelling of the ear and surrounding the ear CARDIOVASCULAR: Denies chest pain, palpitations, or edema. RESPIRATORY: Denies cough. Denies dyspnea. GASTROINTESTINAL: Denies abdominal pain, nausea, vomiting, diarrhea SKIN: Denies rash or itching. MUSCULOSKELETAL: Denies myalgia. NEUROLOGIC: Denies headache. All systems reviewed & are unremarkable except as noted in HPI and below PMFSH Past Medical History Medical History No pertinent past medical history Normal Surgical History Surgical History No pertinent past surgical history Family History Family History Other Unknown family medical history Social History Social History Smoking status: Never smoker Second hand tobacco smoke exposure: No Alcohol intake: never Substance use: never Gender identity (if verbalized by the patient): Female Spiritual care concerns: No Comments At time of signature, agree with nursing past medical, surgical, social and family history. There is no relevant family history pertinent to the presenting complaint Exam Narrative: GENERAL: Well-appearing, well-nourished, and in no acute distress. HEAD: Normocephalic EYES: PERRLA, conjunctivae clear ENT: Nares clear. Mucous membranes moist. Left TM pearly johns with sharp light reflex, right TM not clearly visible due to gross EAC swelling and drainage; right tragal tenderness with external ear edema, erythema and tenderness. Erythema, edema and tenderness posterior and anteriorly to the right ear NECK: Supple. No lymphadenopathy CHEST: No respiratory distress, speaks in full sentences. HEART: Regular rate and rhythm. No murmur heard. SKIN: Warm, dry, no rash. NEURO: Alert and oriented x3. PSYCH: Normal mood and affect Course Course Emergency Course: Patient is aware of, understands and agrees to be transferred to the emergency room. Patient agrees to proceed directly to the emergency department. Portions of this record may have been created with voice recognition software Level of Care: Express Care Visit Vital Signs Vital signs: Vital Signs Temperature 97.9 F 02/06/24 12:51 Pulse Rate 86 02/06/24 12:51 Respiratory Rate 16 02/06/24 12:51 Blood Pressure 163/112 H 02/06/24 12:51 Pulse Oximetry 100 02/06/24 12:51 Temperature 97.9 F 02/06/24 12:51 Pulse Rate 86 02/06/24 12:51 Respiratory Rate 16 02/06/24 12:51 Blood Pressure 163/112 H 02/06/24 12:51 Pulse Oximetry 100 02/06/24 12:51 Reviewed. Transfer Transfered to: [facility] Transportation: Other (Private vehicle) Transfer rationale: Rule out mastoiditis verses diffuse otitis Accepting physician: Flash Medical Decision Making [facility] Narrative Medical decision making narrative: Patient is nontoxic appearing and in no acute distress, patient appropriate for transfer via private vehicle to the ER Vital Signs Vital Signs: Vital Signs Temperature 97.9 F 02/06/24 12:51 Pulse Rate 86 02/06/24 12:51 Respiratory Rate 16 02/06/24 12:51 Blood Pressure 163/112 H 02/06/24 12:51 Pulse Oximetry 100 02/06/24 12:51 Temperature 97.9 F 02/06/24 12:51 Pulse Rate 86 02/06/24 12:51 Respiratory Rate 16 02/06/24 12:51 Blood Pressure 163/112 H 02/06/24 12:51 Pulse Oximetry 100 02/06/24 12:51 Critical Care Time Critical Care Time Critical Care Time: No Discharge Plan Discharge Clinical Impression: Swelling of right ear Patient Disposition: Acute Care Hospital Condition: Stable Prescriptions: No Action pseudoephedrine HCl [12 Hour Decongestant] 120 mg tablet extended release 120 mg PO Q12H PRN (Reason: nasal congestion) Qty: 12 0RF fluticasone propionate [Flonase Allergy Relief] 50 mcg/actuation spray,suspension 2 spray NASAL DAILY 14 Days Qty: 15.8 0RF Rx Instructions: administer into each nostril Follow-up/Referrals: PHYSICIAN,AUXILIARY POWER EQUIPMENT OPERATOR [Primary Care Provider] - Time of Disposition: 13:08
== END 2024-02-06 13:11 | disposition short-term general hospital (02) ==
PROVIDERS: Emergency Provider Nurse Practitioner
DX: H93.8X1 Other specified disorders of right ear (principal)
CPT/HCPCS: 99212; G0463

== ENCOUNTER 2024-02-06 13:30 | Emergency (ER) | payer OTHER, SELFPAY ==
--- NOTE | ~2024-02-06 | CT_ITS ---
EXAMINATION: CT facial bones w con DATE: 02/06/2024 15:11 INDICATION: Right ear and facial swelling, right ear pain and right mastoid tenderness. TECHNIQUE: Computed tomography (CT) of the facial bones and maxillofacial region was performed with 7 5 mL Omnipaque-350 intravenous contrast. Coronal reconstructions were obtained. Automated exposure co ntrol and iterative reconstruction technique were employed. The dose-length product was 651.82 mGy-cm . COMPARISON: None. FINDINGS: Orbits, paranasal sinuses and left mastoid air cells and middle ear cavities are normal. There is rig ht posterior facial swelling centered about the ear were there is prominent thickening of the soft ti ssues at the periphery of the external auditory canal consistent with otitis externa. There is increa sed density along the periphery of the right inner ear cavity and surrounding the ossicles which coul d represent either fluid and/or mucosal thickening suspicious for associated mild otitis interna. Min imal amount of fluid consistent with the right mastoid air cells along side the middle ear cavity. Th e majority of the right mastoid air cells remain clear. No evident osseous erosion or dehiscence. Mul tiple asymmetric mildly enlarged likely reactive right facial lymph nodes in the submandibular, parot id and periauricular, posterior cervical triangle and upper right jugular chains. There are couple ad ditional mildly prominent likely reactive level 2 left jugular chain lymph nodes. Left parotid and bi lateral submandibular glands are normal. IMPRESSION: 1. Mild right otitis interna the more prominent otitis externa with minimal likely reactive fluid in left in the immediately adjacent right mastoid air cells. 2. Likely reactive right facial and upper cervical lymphadenopathy. Reviewed, dictated and finalized at location B. CTOR OF RESPIRATORY THERAPY IMPRESSION: 1. Mild right otitis interna the more prominent otitis externa with minimal lik svetlana reactive fluid in left in the immediately adjacent right mastoid air cells. 2. Likely reactive right facial and upper cervical lymphadenopathy.
--- NOTE | 2024-02-06 13:41 | ED.GENADULT ---
HPI - General Adult General Chief complaint: Ear <Bailee Schneider PA-C - Last Filed: 02/06/24 18:32> Stated complaint: Ear infection causing facial swelling <Bailee Schneider PA-C - Last Filed: 02/06/24 18:32> Time Seen by Provider: 02/06/24 13:41 <Bailee Schneider PA-C - Last Filed: 02/06/24 18:32> Focused HPI: This is a 28 year old female that presents to the ER for ear infection. Ongoing over the last 4 days. Reports right ear pain and drainage. No history of DM. She is currently on neomycin/polymyxin since yesterday with little relief. Reports worsening swelling when she woke up this morning. Was seen at urgent care and sent to the ER for further evaluation. GENERAL: Well-appearing, well-nourished, and in no acute distress. HEAD: Normocephalic, atraumatic. Notable swelling to the right external ear and pre-auricular area. Mastoid tenderness. Severe external auditory canal swelling CHEST: Clear to auscultation. ?No respiratory distress. HEART: Regular rate and rhythm.? NEURO: ?Alert and oriented x3. Patient screened in triage and initial orders placed.? ?Additional care and disposition to be based upon?diagnostic testing and treatment. <Bailee Schneider PA-C - Last Filed: 02/06/24 18:32> History of Present Illness HPI narrative: agree with HPI <Bipin Najera MD - Last Filed: 02/06/24 17:01> Related Data Home medications: Home Medications Medication Instructions Recorded Confirmed [id number] 3.5 drp 02/06/24 02/06/24 mg-10,000 unit/mL-1 % ear drops,susp <VISHLA Meehan Last Filed: 02/06/24 18:32> Allergies/adverse reactions: Allergies Allergy/AdvReac Type Severity Reaction Status Date / Time Sulfa (Sulfonamide Allergy Mild Swelling Verified 02/06/24 13:30 Antibiotics) of Lip/Tongue/Throat iohexol Allergy Hives Verified 02/06/24 15:22 [From contrast - CT, X-RAY] <Bailee Schneider PA-C - Last Filed: 02/06/24 18:32> Review of Systems Constitutional: Constitutional: Reports no additional constitutional complaints <Bipin Najera MD - Last Filed: 02/06/24 17:01> Eyes: Eyes: Reports no additional eye complaints <Bipin Najera MD - Last Filed: 02/06/24 17:01> ENT: Reports ear discharge and Reports otalgia <Bipin Najera MD - Last Filed: 02/06/24 17:01> Comments: decreased hearing on the right side <Bipin Najera MD - Last Filed: 02/06/24 17:01> PMFSH Past Medical History Medical History: Medical History No pertinent past medical history Normal <Bailee Schneider PA-C - Last Filed: 02/06/24 18:32> Surgical History Surgical History: Surgical History No pertinent past surgical history <Bailee Schneider PA-C - Last Filed: 02/06/24 18:32> Family History Family History: Family History Other Unknown family medical history <Bailee Schneider PA-C - Last Filed: 02/06/24 18:32> Social History Social History: Social History Smoking status: Never smoker Second hand tobacco smoke exposure: No Alcohol intake: never Substance use: never Gender identity (if verbalized by the patient): Female Spiritual care concerns: No <Bailee Schneider PA-C - Last Filed: 02/06/24 18:32> Exam Narrative: GENERAL: Well-appearing, morbidly obese, and in no acute distress. HEAD: Normocephalic, atraumatic. ENT: Mucous membranes moist. Edematous right external ear with the ear canal swelled shut. Discharge noted at may be from ear drops. Tender with manipulation. No mastoid tenderness on the right side. Normal left ear And ear canal. NECK: Supple. Lymphadenopathy on the right side. EXTREMITIES: Normal range of motion. No edema. SKIN: Warm, dry, no rash. NEURO: Alert and oriented x3. PSYCH: Normal mood and affect. <Bipin Najera MD - Last Filed: 02/06/24 17:01> Course Course Emergency Course: Patient provided with ear terrell and taught how to use them. Will also start on oral antibiotics. [place] for pain. Will give ENT follow-up. <Bipin Najera MD - Last Filed: 02/06/24 17:01> Vital Signs Vital signs: Vital Signs Temperature 97.7 F 02/06/24 13:49 Pulse Rate 85 02/06/24 13:49 Respiratory Rate 16 02/06/24 13:49 Blood Pressure 150/105 H 02/06/24 13:49 Pulse Oximetry 100 02/06/24 13:49 Oxygen Delivery Room Air 02/06/24 13:49 Temperature 98.9 F 02/06/24 17:22 Pulse Rate 97 02/06/24 17:22 Respiratory Rate 16 02/06/24 17:22 Blood Pressure 169/85 H 02/06/24 17:22 Pulse Oximetry 100 02/06/24 17:22 Oxygen Delivery Room Air 02/06/24 13:49 <Bailee Schneider PA-C - Last Filed: 02/06/24 18:32> Vital Signs Temperature 97.7 F 02/06/24 13:49 Pulse Rate 85 02/06/24 13:49 Respiratory Rate 16 02/06/24 13:49 Blood Pressure 150/105 H 02/06/24 13:49 Pulse Oximetry 100 02/06/24 13:49 Oxygen Delivery Room Air 02/06/24 13:49 Temperature 98.9 F 02/06/24 17:22 Pulse Rate 97 02/06/24 17:22 Respiratory Rate 16 02/06/24 17:22 Blood Pressure 169/85 H 02/06/24 17:22 Pulse Oximetry 100 02/06/24 17:22 Oxygen Delivery Room Air 02/06/24 13:49 <Bipin Najera MD - Last Filed: 02/06/24 17:01> Medical Decision Making Vital Signs Vital Signs: Vital Signs Temperature 97.7 F 02/06/24 13:49 Pulse Rate 85 02/06/24 13:49 Respiratory Rate 16 02/06/24 13:49 Blood Pressure 150/105 H 02/06/24 13:49 Pulse Oximetry 100 02/06/24 13:49 Oxygen Delivery Room Air 02/06/24 13:49 Temperature 98.9 F 02/06/24 17:22 Pulse Rate 97 02/06/24 17:22 Respiratory Rate 16 02/06/24 17:22 Blood Pressure 169/85 H 02/06/24 17:22 Pulse Oximetry 100 02/06/24 17:22 Oxygen Delivery Room Air 02/06/24 13:49 <Baiele Schneider PA-C - Last Filed: 02/06/24 18:32> Vital Signs Temperature 97.7 F 02/06/24 13:49 Pulse Rate 85 02/06/24 13:49 Respiratory Rate 16 02/06/24 13:49 Blood Pressure 150/105 H 02/06/24 13:49 Pulse Oximetry 100 02/06/24 13:49 Oxygen Delivery Room Air 02/06/24 13:49 Temperature 98.9 F 02/06/24 17:22 Pulse Rate 97 02/06/24 17:22 Respiratory Rate 16 02/06/24 17:22 Blood Pressure 169/85 H 02/06/24 17:22 Pulse Oximetry 100 02/06/24 17:22 Oxygen Delivery Room Air 02/06/24 13:49 <Bipin Najera MD - Last Filed: 02/06/24 17:01> Lab Data Result diagrams: 02/06/24 14:09 02/06/24 14:09 <Bailee Schneider PA-C - Last Filed: 02/06/24 18:32> Labs: Lab Results 02/06/24 Range/Units 14:09 WBC 9.5 (4.5-10.0) K/mm3 RBC 4.46 (4.2-5.4) M/mm3 Hgb 12.4 D (12.0-15.0) g/dL Hct 39.2 (37.0-47.0) % MCV 87.9 (80-100) fl MCH 27.8 (26-34) pg MCHC 31.6 L (32-36) g/dl RDW 13.5 (11.5-14.5) % Plt Count 259 (150-375) k/mm3 MPV 10.8 H (7.4-10.4) fl Immature Gran % (Auto) 0.4 (0-0.5) % Neut % (Auto) 71.6 (45.5-73.1) % Lymph % (Auto) 21.2 (18.3-44.2) % Nobles % (Auto) 5.9 (2.6-8.5) % Eos % (Auto) 0.6 (0-4.4) % Baso % (Auto) 0.3 (0.2-1.2) % Lymph # (Auto) 2.02 (0.9-3.2) K/mm3 Nobles # (Auto) 0.6 (0.1-0.6) K/mm3 Eos # (Auto) 0.1 (0-0.3) K/mm3 Baso # (Auto) 0.0 (0.0-0.1) K/mm3 Abs Immat Gran (auto) 0.04 H (0.00-0.031) K/mm3 Absolute Neuts (auto) 6.8 H (1.3-6.7) K/mm3 Absolute Nucleated RBC 0.000 (0.0-0.012) K/mm3 Nucleated RBC % 0.0 (0.0-0.2) % ESR 26 H (0-20) mm/hr Sodium 137 (137-145) mmol/L Potassium 4.1 (3.4-5.0) mmol/L Chloride 102 (98-107) mmol/L Carbon Dioxide 28 (22-30) mmol/L Anion Gap 7 (4-12) mmol/L BUN 13 D (7-17) mg/dL Creatinine 0.90 (0.7-1.0) mg/dL Estim Creat Clear Calc 112 ml/min Estimated GFR > 60 (59 - ) Glucose 101 (65-110) mg/dL Calcium 8.8 (8.4-10.2) mg/dL C-Reactive Protein 4.8 H (<1.0) mg/dL <Bailee Schneider PA-C - Last Filed: 02/06/24 18:32> Lab Results 02/06/24 Range/Units 14:09 WBC 9.5 (4.5-10.0) K/mm3 RBC 4.46 (4.2-5.4) M/mm3 Hgb 12.4 D (12.0-15.0) g/dL Hct 39.2 (37.0-47.0) % MCV 87.9 (80-100) fl MCH 27.8 (26-34) pg MCHC 31.6 L (32-36) g/dl RDW 13.5 (11.5-14.5) % Plt Count 259 (150-375) k/mm3 MPV 10.8 H (7.4-10.4) fl Immature Gran % (Auto) 0.4 (0-0.5) % Neut % (Auto) 71.6 (45.5-73.1) % Lymph % (Auto) 21.2 (18.3-44.2) % Nobles % (Auto) 5.9 (2.6-8.5) % Eos % (Auto) 0.6 (0-4.4) % Baso % (Auto) 0.3 (0.2-1.2) % Lymph # (Auto) 2.02 (0.9-3.2) K/mm3 Nobles # (Auto) 0.6 (0.1-0.6) K/mm3 Eos # (Auto) 0.1 (0-0.3) K/mm3 Baso # (Auto) 0.0 (0.0-0.1) K/mm3 Abs Immat Gran (auto) 0.04 H (0.00-0.031) K/mm3 Absolute Neuts (auto) 6.8 H (1.3-6.7) K/mm3 Absolute Nucleated RBC 0.000 (0.0-0.012) K/mm3 Nucleated RBC % 0.0 (0.0-0.2) % ESR 26 H (0-20) mm/hr Sodium 137 (137-145) mmol/L Potassium 4.1 (3.4-5.0) mmol/L Chloride 102 (98-107) mmol/L Carbon Dioxide 28 (22-30) mmol/L Anion Gap 7 (4-12) mmol/L BUN 13 D (7-17) mg/dL Creatinine 0.90 (0.7-1.0) mg/dL Estim Creat Clear Calc 112 ml/min Estimated GFR > 60 (59 - ) Glucose 101 (65-110) mg/dL Calcium 8.8 (8.4-10.2) mg/dL C-Reactive Protein 4.8 H (<1.0) mg/dL <Bipin Najera MD - Last Filed: 02/06/24 17:01> Imaging Data Radiologist's impression: ITS Impressions Face CT 02/06/24 15:13 IMPRESSION: 1. Mild right otitis interna the more prominent otitis externa with minimal likely reactive fluid in left in the immediately adjacent right mastoid air cells. 2. Likely reactive right facial and upper cervical lymphadenopathy. <Bipin Najera MD - Last Filed: 02/06/24 17:01> Critical Care Time Critical Care Time Critical Care Time: No <Bailee Schneider PA-C - Last Filed: 02/06/24 18:32> Discharge Plan Discharge Clinical Impression: Otitis externa <Bailee Schneider PA-C - Last Filed: 02/06/24 18:32> Patient Disposition: Home, Self-Care <Bailee Schneider PA-C - Last Filed: 02/06/24 18:32> Condition: Stable <Bailee Schneider PA-C - Last Filed: 02/06/24 18:32> Instructions: Swimmer's Ear (ED) <Bailee Schneider PA-C - Last Filed: 02/06/24 18:32> Additional Instructions: You will be started on an oral antibiotic to take in addition to your ear drops. Follow-up with ENT. Return the ER if you have worsening pain, you lose consciousness, or you have additional concerns. <Bailee Schneider PA-C - Last Filed: 02/06/24 18:32> Prescriptions: New hydrocodone-acetaminophen 5-325 mg tablet 1 tablet PO Q6H PRN (Reason: pain) Qty: 20 0RF ciprofloxacin HCl 500 mg tablet 500 mg PO Q12H Qty: 20 0RF No Action [id number] 3.5-10,000-1 mg/mL-unit/mL-% drops,suspension <Bailee Schneider PA-C - Last Filed: 02/06/24 18:32> Follow-up/Referrals: Olayinka Ann MD [Physician] - 1 Week PHYSICIAN,CYTOTECHNOLOGIST/HISTOTECHNOLOGIST [Non-Staff] - <Bailee Schneider PA-C - Last Filed: 02/06/24 18:32>
[2024-02-06 13:49] VITALS: BP 150/105; PULSE 85; RESP 16; TEMP 36.5; O2SAT 100
[2024-02-06 14:19] LABS: Basophils Percent Auto 0.3 % (0.2-1.2); Eosinophils Absolute Auto 0.1 K/mm3 (0-0.3); Eosinophils Percent Auto 0.6 % (0-4.4); Hematocrit 39.2 % (37.0-47.0); Hemoglobin 12.4 g/dL (12.0-15.0); Immature Granulocyte Absolute 0.04 K/mm3 (0.00-0.031); Immature Granulocyte Percent A 0.4 % (0-0.5); Lymphocytes Absolute Auto 2.02 K/mm3 (0.9-3.2); Lymphocytes Percent Auto 21.2 % (18.3-44.2); Mean Corpuscular HGB Conc 31.6 g/dl (32-36); Mean Corpuscular Hemoglobin 27.8 pg (26-34); Mean Corpuscular Volume 87.9 fl (80-100); Mean Platelet Volume 10.8 fl (7.4-10.4); Monocytes Absolute Auto 0.6 K/mm3 (0.1-0.6); Monocytes Percent Auto 5.9 % (2.6-8.5); Neutrophils Absolute Auto 6.8 K/mm3 (1.3-6.7); Neutrophils Percent Auto 71.6 % (45.5-73.1); Platelet Count Result 259 k/mm3 (150-375); Red Blood Count 4.46 M/mm3 (4.2-5.4); Red Cell Distribution Width 13.5 % (11.5-14.5); White Blood Count 9.5 K/mm3 (4.5-10.0)
[2024-02-06 14:41] LABS: Anion Gap 7 mmol/L (4-12); Blood Urea Nitrogen 13 mg/dL (7-17); CRP 4.8 mg/dL (<1.0); Calcium 8.8 mg/dL (8.4-10.2); Carbon Dioxide 28 mmol/L (22-30); Chloride 102 mmol/L (98-107); Estimated CRCL calculation 112 ml/min; Estimated Glomerular Filt Rate > 60; Glucose 101 mg/dL (65-110); Potassium 4.1 mmol/L (3.4-5.0); Sodium 137 mmol/L (137-145)
[2024-02-06 15:08] LABS: Erythrocyte Sedimentation Rate 26 mm/hr (0-20)
[2024-02-06 15:24] VITALS: BP 179/109; PULSE 96; RESP 18; O2SAT 100
--- NOTE | 2024-02-06 15:24 | PC.NURSE ---
Pt reporting bumps to her face after having CT dye. c/o feeling chilled.
[2024-02-06] MEDS: diphenhydrAMINE HCl INJ 50 MG/ML VIAL 25 MG IV PUSH (15:25)
[2024-02-06] MEDS: FAMOTIDINE 20 MG/2 ML VIAL IV PUSH (15:25)
[2024-02-06 15:33] VITALS: BP 157/90; PULSE 82; RESP 17; O2SAT 100
--- NOTE | 2024-02-06 15:38 | PC.NURSE ---
RN noted hives to pt face, none noted anywhere else on pt body
[2024-02-06] MEDS: HYDROcodone/acetaminophen (*CRX) 5-325 MG TABLET 1 TAB PO (16:04)
[2024-02-06 17:22] VITALS: BP 169/85; PULSE 97; RESP 16; TEMP 37.2; O2SAT 100
== END 2024-02-06 17:23 | disposition home or self-care (01) ==
PROVIDERS: Physician Assistant; Emergency Provider Emergency Medicine
DX: H60.91 Unspecified otitis externa, right ear (principal)
CPT/HCPCS: 36415; 70487; 80048; 85025; 85652; 86140; 96374; 96375; 99284; A9270; J1200; Q9967